=== PATIENT | female | born 1945 | race Caucasian/White ===

== ENCOUNTER 2018-06-18 21:30 | Observation (INO) | payer MEDICARE, MEDICAID ==
--- NOTE | 2018-06-18 21:42 | Emergency Department Record ---
History of Present Illness - General Chief Complaint: Hypertension Stated Complaint: HYPERTENSION Time Seen by Provider: 06/18/18 21:35 Source: Patient Mode of Arrival: Ambulatory Limitations: No limitations - History of Present Illness Initial Comments: 72 yo female presents with about two days of feeling off balance. She states she was around friends today that noticed around 7pm she was off balance and seemed to be slurring her speech for a few minutes. The speech quickly returned to normal. She states she took her blood pressure at home and it was noted to be elevated. She presented to the ED for a BP check. No headache, no vision changes. She has felt today like her arm on the left is a little weak but no actual difficulty moving, lifting, gripping. No history or cardiac disease. She is a smoker. No history of alcohol. She does have HTN. She has felt like her heart beat is skipping tonight as well. No syncope. PCP is Hipolito Flaherty MD Complaint: Dizziness, Other (Palpitations) -: Days(s) (2) Timing: Gradual onset Description: Difficulty walking, Lightheadedness, Other History of Same: No History of Trauma: No Severity: Moderate Improves With: Remaining still Worsens With: Movement, Exertion Associated Symptoms: Denies other symptoms - [place] Coma Scale Eye Response: (4) Open spontaneously Motor Response: (6) Obeys commands Verbal Response: (5) Oriented [place] Total: 15 - Symptoms of Stroke Symptoms of stroke: Dizziness, Speech Dysfunction - Related Data Home Medications Medication Instructions Recorded Confirmed Last Taken Lansoprazole 15 mg PO DAILY 06/18/18 06/18/18 06/18/18 Montelukast Sodium 10 mg PO QHS 06/18/18 06/18/18 06/18/18 Zolpidem Tartrate 10 mg PO QHS 06/18/18 06/18/18 Unknown Allergies Allergy/AdvReac Type Severity Reaction Status Date / Time No Known Drug Allergies Allergy Verified 06/18/18 21:35 Review of Systems Constitutional: Reports: Weakness. Denies: Chills, Fever Eyes: Denies: Eye discharge, Eye pain, Photophobia, Vision change ENT: Denies: Congestion, Throat pain Respiratory: Denies: Cough, Dyspnea, Hemoptysis, Stridor, Wheezes Cardiovascular: Denies: Dyspnea on exertion Endocrine: Denies: Fatigue Gastrointestinal: Denies: Abdominal pain, Diarrhea, Nausea, Vomiting Genitourinary: Denies: Dysuria Musculoskeletal: Denies: Arthralgia, Back pain, Joint swelling, Myalgia Skin: Denies: Bruising, Change in color, Rash Neurological: Reports: Vertigo, Weakness. Denies: Abnormal gait, Confusion, Headache, Numbness, Paresthesias, Seizure, Tingling, Tremors Psychiatric: Denies: Anxiety Hematological/Lymphatic: Denies: Blood Clots, Easy bleeding, Easy bruising, Swollen glands Past Medical History - SOCIAL HISTORY Smoking Status: Current every day smoker - RESPIRATORY Hx Respiratory Disorders: No - CARDIOVASCULAR Hx Cardio Disorders: Yes Hx Hypertension: Yes Comment:: takes prophylactic abx prior to dentist - NEURO Hx Neuro Disorders: No - GI Hx GI Disorders: Yes Hx Reflux: Yes - Hx Genitourinary Disorders: No - ENDOCRINE Hx Endocrine Disorders: No - MUSCULOSKELETAL Hx Musculoskeletal Disorders: Yes Hx Arthritis: Yes (osteoporosis) - PSYCH Hx Psych Problems: Yes Hx Anxiety: Yes Hx Depression: Yes Comment:: claustophobic - HEMATOLOGY/ONCOLOGY Hx Hematology/Oncology Disorders: No Physical Exam - General General Appearance: Alert, Oriented x3, Cooperative, No acute distress Limitations: No limitations - Head Head exam: Atraumatic, Normocephalic, Normal inspection Head exam detail: negative: Abrasion, Contusion - Eye Eye exam: Normal appearance, PERRL, EOMI. negative: Conjunctival injection, Scleral icterus Pupils: Normal accommodation - ENT ENT exam: Normal exam Ear exam: Normal external inspection Nasal Exam: Normal inspection Mouth exam: Normal external inspection Teeth exam: Normal inspection Throat exam: Normal inspection - Neck Neck exam: Normal inspection, Full ROM. negative: Tenderness - Respiratory Respiratory exam: Normal lung sounds bilaterally. negative: Respiratory distress - Cardiovascular Cardiovascular Exam: Regular rate, Normal rhythm, Normal heart sounds Peripheral Pulses: 2+: Radial (R), Radial (L) - GI/Abdominal GI/Abdominal exam: Soft - Rectal Rectal exam: Deferred - exam: Deferred - Extremities Extremities exam: Normal inspection, Full ROM, Normal capillary refill. negative: Pedal edema, Tenderness - Back Back exam: Reports: Normal inspection. 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 negative: Abnormal gait, Altered, Motor sensory deficit - Psychiatric Psychiatric exam: Normal affect, Normal mood. negative: Agitated, Anxious, Depressed - Skin Skin exam: Dry, Intact, Normal color, Warm Course - Reevaluation(s) Reevaluation #1: NIH at this time is 0. 06/18/18 21:41 EKG EKG #1: 2134 Rate: 69 Rhythm: sinus [place]: normal Intervals: normal ST segments: normal Prior: none 06/18/18 22:29 No acute changes on the labs. The HCT was read as no acute intracranial findings. 06/18/18 22:40 The patient remains asymptomatic He BP is improved to 164/91 I recommend OBS overnight given the symptoms earlier The patient remains asymptomatic at admission Echo, Carotid US, neuro checks ordered for admission 06/18/18 22:41 Medical Decision Making - Lab Data Result diagrams: 06/18/18 21:45 06/18/18 21:45 Disposition Disposition: Admit Clinical Impression: Dizziness, Palpitations, TIA (transient ischemic attack) Hypertension Qualifiers: Hypertension type: unspecified Qualified Code(s): I10 - Essential (primary) hypertension Disposition: Still a Patient at [facility] Decision to Admit: Admit from ER Decision to Admit Date: 06/18/18 Decision to Admit Time: 22:40 Condition: (1) Good Time of Disposition: 22:40 Quality - Quality Measures Quality Measures: N/A - Blood Pressure Screening Does Patient Have Any of the Following: Active Dx of HTN Blood Pressure Classification: Hypertensive Reading Systolic Measurement: 180 Diastolic Measurement: 71 Screening for High Blood Pressure: Patient Exclusion, Hx of HTN [[id number]]
[2018-06-18 21:52] LABS: HEMATOCRIT 44.8 % (35.0-47.0); HEMOGLOBIN 14.4 gm/dl (11.6-16.0); MEAN CELL VOLUME 91.8 fl (81-97); MEAN CORPUSCULAR HEMOGLOBIN 29.5 pg (27-33); MEAN CORPUSCULAR HGB CONC 32.1 g/dl (32-36); PLATELET COUNT 364 K/uL (130-400); RED BLOOD COUNT 4.88 M/uL (3.80-5.40); RED CELL DISTRIBUTION WIDTH 14.9 % (11.5-14.5); WHITE BLOOD COUNT W/O DIFF 7.6 K/uL (4.2-12.2)
[2018-06-18 22:00] LABS: BLOOD UREA NITROGEN 16 mg/dL (8-23); CREATININE 0.7 mg/dL (0.5-0.9); EST GLOMERULAR FILTRATION RATE > 60 mL/min
[2018-06-18 22:01] LABS: TOTAL PROTEIN 7.5 g/dL (6.6-8.7)
[2018-06-18 22:03] LABS: GLUCOSE,RANDOM 105 mg/dL (74-109)
[2018-06-18 22:04] LABS: PARTIAL THROMBOPLASTIN TIME 28.4 SECONDS (24.5-39.1); PROTHROMBIN TIME (PATIENT) 10.4 SECONDS (9.5-12.1)
[2018-06-18 22:06] LABS: ALB/GLOB RATIO 1.4 (1.1-1.8); ALBUMIN 4.4 g/dL (4.0-5.0); ALKALINE PHOSPHATASE 75 U/L (35-104); ALT/SGPT 11 U/L (<33); AST/SGOT 16 U/L (10.0-35.0)
[2018-06-18 22:47] LABS: ANISOCYTOSIS 1+; PLATELET ESTIMATE NORMAL (NORMAL)
[2018-06-18] MEDS ORDERED: ACETAMINOPHEN 325 MG TAB PO PRN (23:33)
[2018-06-18] MEDS ORDERED: ASPIRIN 81 MG CHEWABLE TABLET PO ONE (23:55)
[2018-06-18] MEDS ORDERED: MONTELUKAST SODIUM 10MG TABLET PO SCH (23:55)
[2018-06-18] MEDS ORDERED: PAROXETINE HCL 10 MG TABLET PO SCH (23:55)
[2018-06-18] MEDS ORDERED: ZOLPIDEM TARTRATE 5 MG TABLET PO SCH (23:55)
[2018-06-19 00:42] LABS: URINE APPEARANCE CLEAR; URINE BILIRUBIN NEGATIVE (NEGATIVE); URINE BLOOD NEGATIVE (NEGATIVE); URINE COLOR YELLOW; URINE GLUCOSE (UA) NEGATIVE (NEGATIVE); URINE KETONE NEGATIVE (NEGATIVE); URINE LEUKOCYTE ESTERASE TRACE (NEGATIVE); URINE NITRITE NEGATIVE (NEGATIVE); URINE PROTEIN NEGATIVE (NEGATIVE); URINE UROBILINOGEN 0.2 E.U./dL (0.20 - 1.00)
[2018-06-19 00:54] LABS: URINE RBC 0 - 2 (NONE SEEN); URINE WBC 0 - 2 (0-2/hpf)
[2018-06-19] MEDS ORDERED: PANTOPRAZOLE SODIUM 40 MG TABLET PO SCH (07:00)
[2018-06-19] MEDS ORDERED: NICOTINE14 MG/24 HOUR PATCH TD SCH (08:45)
[2018-06-19] MEDS ORDERED: PREGABALIN (LYRICA) 100MG CAPSULE PO SCH (10:00)
[2018-06-19] MEDS ORDERED: SIMVASTATIN 20 MG TABLET PO SCH (10:00)
[2018-06-19] MEDS ORDERED: ATENOLOL 50 MG TABLET PO SCH (10:00)
[2018-06-19] MEDS ORDERED: PREGABALIN 25 MG CAPSULE PO SCH (10:00)
--- NOTE | 2018-06-19 10:19 | CT SCAN REPORT ---
EXAM: NONCONTRAST CT OF THE HEAD HISTORY: DIZZINESS, SLURRED SPEECH. TECHNIQUE: Noncontrast CT of the head was obtained. Comparison: None. FINDINGS: There is no midline shift, mass effect, or abnormal intra or extraaxial fluid collection. No cerebral edema, focal mass or intracranial hemorrhage is detected. The ventricle sizes are within normal limits for patient's age. The basal cisterns castro appear effaced. No evidence of displaced calvarial fracture on bone window images. The visualized paranasal sinuses and mastoid air cells are clear. IMPRESSION: NO ACUTE INTRACRANIAL FINDINGS. JOB NUMBER: [id number] MTDD
--- NOTE | 2018-06-19 10:29 | History & Physical ---
History of Present Illness - Date of Service Date of Service for History & Physical: 06/19/18 - History of Present Illness Admitting Diagnosis: Hypertenion, dizziness, transient slurred speech. History of Present Illness: 72year old female presented to ED last night due to noting high blood pressure, feeling off balance, and an episode of slurred speech. Patient states that she was with friends last night when they noticed around 7pm that she was off balance and slurring her speech for about 2 minutes, which then spontaneously resolved. Patient states she then took her blood pressure at home, which she noted to be elevated at 169/84. Patient denied any headache, vision changes, syncope, or weakness. Patient has no cardiac history but is a current ppd smoker. Past medical history includes hypertension, hyperlipidemia, depression, and chronic arthritic pain. PCP: Hipolito Salgado ED Course: Initial BP was 220/83, repeat was 164/91 with no treatment EKG: Rate 69, normal axis, normal intervals, normal ST segments, no previous CBC, CMP, UA and troponins negative Head CT no acute process 06/19/18: Patient A&O x 4, resting comfortably in bed with daughter at bedside. Patient remains asymptomatic at this time, neuro exam WNL. BP has remained controlled with home medications. ECHO and carotid dopplers pending. Travel Screening - Travel/Exposure Within Last 30 Days Have you traveled within the last 30 days?: No - Travel/Exposure Within Last Year Have you traveled outside the [place] in the last year?: No - Additonal Travel Details Have you been exposed to anyone with a communicable illness?: No - Travel Symptoms Symptom Screening: None Review of Systems Reviewed: No additional complaints except as noted below Constitutional: Denies: Chills, Fever, Weakness Eyes: Denies: Eye discharge, Eye pain, Photophobia, Vision change ENT: Denies: Congestion, Throat pain Respiratory: Denies: Cough, Dyspnea, Hemoptysis, Stridor, Wheezes Cardiovascular: Denies: Dyspnea on exertion Endocrine: Denies: Fatigue Gastrointestinal: Denies: Abdominal pain, Diarrhea, Nausea, Vomiting Genitourinary: Denies: Dysuria Musculoskeletal: Denies: Arthralgia, Back pain, Joint swelling, Myalgia Skin: Denies: Bruising, Change in color, Rash Neurological: Reports: Vertigo, Weakness. Denies: Abnormal gait, Confusion, Headache, Numbness, Paresthesias, Seizure, Tingling, Tremors Psychiatric: Denies: Anxiety Hematological/Lymphatic: Denies: Blood Clots, Easy bleeding, Easy bruising, Swollen glands Past Medical History - SOCIAL HISTORY Smoking Status: Current every day smoker - RESPIRATORY Hx Respiratory Disorders: No - CARDIOVASCULAR Hx Cardio Disorders: Yes Hx Hypertension: Yes Comment:: takes prophylactic abx prior to dentist - NEURO Hx Neuro Disorders: No - GI Hx GI Disorders: Yes Hx Reflux: Yes - Hx Genitourinary Disorders: No - ENDOCRINE Hx Endocrine Disorders: No - MUSCULOSKELETAL Hx Musculoskeletal Disorders: Yes Hx Arthritis: Yes (osteoporosis) - PSYCH Hx Psych Problems: Yes Hx Anxiety: Yes Hx Depression: Yes Comment:: claustophobic - HEMATOLOGY/ONCOLOGY Hx Hematology/Oncology Disorders: No Family Medical History Any Significant Family History?: Yes Hx Cancer: Father *Cancer Comment: colon Hx Heart Disease: Mother H&P Meds/Allergies - Allergies Allergies: Allergies Allergy/AdvReac Type Severity Reaction Status Date / Time No Known Drug Allergies Allergy Verified 06/18/18 21:35 - Home Medications Home Medications Medication Instructions Recorded Confirmed Last Taken Lansoprazole 15 mg PO DAILY 06/18/18 06/18/18 06/18/18 Montelukast Sodium 10 mg PO QHS 06/18/18 06/18/18 06/18/18 Zolpidem Tartrate 10 mg PO QHS 06/18/18 06/18/18 Unknown Paroxetine HCl [Paxil] 30 mg PO QHS 06/19/18 06/19/18 Unknown - Active Medications Active Medications: Current Medications Acetaminophen (Tylenol 325mg) 650 mg PO Q6H PRN PRN Reason: PAIN - MILD(1-4)/FEVER Atenolol (Tenormin) 50 mg PO DAILY [facility] Last Admin: 06/19/18 09:50 Dose: 50 mg Montelukast Sodium (Singulair) 10 mg PO QHS [facility] Last Admin: 06/19/18 00:27 Dose: 10 mg Nicotine (Nicotine 14mg) 1 patch TD Q24H [facility] Last Admin: 06/19/18 08:40 Dose: 1 patch Pantoprazole Sodium (Protonix) 40 mg PO DAILYAC [facility] Last Admin: 06/19/18 06:55 Dose: 40 mg Paroxetine HCl (Paxil) 30 mg PO QHS [facility] Pregabalin (Lyrica) 200 mg PO BID [facility] Last Admin: 06/19/18 09:49 Dose: 200 mg Pregabalin (Lyrica) 25 mg PO BID [facility] Last Admin: 06/19/18 09:49 Dose: 25 mg Simvastatin (Zocor) 20 mg PO DAILY [facility] Last Admin: 06/19/18 09:49 Dose: 20 mg Zolpidem Tartrate (Ambien) 10 mg PO QHS [facility] Last Admin: 06/19/18 00:28 Dose: 10 mg Physical Exam - Vital Signs Vital Signs: Vital Signs - Last 24 Hrs Temp Pulse Pulse Resp BP Pulse Ox 06/19/18 07:42 98.2 F 64 14 166/83 93 L 06/19/18 06:02 60 18 146/76 90 L 06/18/18 23:00 98 F 61 20 180/71 92 L 06/18/18 22:59 60 20 174/83 94 L 06/18/18 22:41 62 164/91 94 L 06/18/18 22:21 63 24 208/90 94 L 06/18/18 21:38 97.3 F L 63 20 229/98 95 - General General Appearance: Alert, Oriented x3, Cooperative, No acute distress Limitations: No limitations - Head Head exam: Atraumatic, Normocephalic, Normal inspection Head exam detail: negative: Abrasion, Contusion - Eye Eye exam: Normal appearance, PERRL, EOMI. negative: Conjunctival injection, Scleral icterus Pupils: Normal accommodation - ENT ENT exam: Normal exam Ear exam: Normal external inspection Nasal Exam: Normal inspection Mouth exam: Normal external inspection Teeth exam: Normal inspection Throat exam: Normal inspection - Neck Neck exam: Normal inspection, Full ROM. negative: Tenderness - Respiratory Respiratory exam: Normal lung sounds bilaterally. negative: Respiratory distress - Cardiovascular Cardiovascular Exam: Regular rate, Normal rhythm, Normal heart sounds Peripheral Pulses: 2+: Radial (R), Radial (L), Dorsalis Pedis (R), Dorsalis Pedis (L) - GI/Abdominal GI/Abdominal exam: Soft, Normal bowel sounds - Rectal Rectal exam: Deferred - exam: Deferred - Extremities Extremities exam: Normal inspection, Full ROM, Normal capillary refill. negative: Pedal edema, Tenderness - Back Back exam: Reports: Normal inspection. 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 negative: Abnormal gait, Altered, Motor sensory deficit - Psychiatric Psychiatric exam: Normal affect, Normal mood. negative: Agitated, Anxious, Depressed - Skin Skin exam: Dry, Intact, Normal color, Warm Results - Labs Result Diagrams: 06/18/18 21:45 06/18/18 21:45 Labs Last 24 Hours: Laboratory Results - last 24 hr 06/18/18 06/18/18 06/18/18 21:45 21:45 21:45 WBC 7.6 RBC 4.88 Hgb 14.4 Hct 44.8 MCV 91.8 MCH 29.5 MCHC 32.1 RDW 14.9 H Plt Count 364 MPV 9.0 Neutrophils % 48.0 Band Neutrophils % 1.0 Eosinophils % Not Reportable Basophils % Not Reportable Lymphocytes 36.0 Monocytes 6.0 Platelet Estimate Normal Anisocytosis 1+ Eosinophil Count 9.0 H PT 10.4 INR 1.0 APTT 28.4 Sodium 141 Potassium 4.4 Chloride 100 Carbon Dioxide 29.0 Anion Gap 12.0 BUN 16 Creatinine 0.7 Estimated GFR > 60 Random Glucose 105 Calcium 9.3 Total Bilirubin 0.20 AST 16 ALT 11 Alkaline Phosphatase 75 Troponin T < 0.010 Total Protein 7.5 Albumin 4.4 Globulin 3.1 Albumin/Globulin Ratio 1.4 Urine Color Urine Appearance Urine pH Ur Specific [place] Urine Protein Urine Glucose (UA) Urine Ketones Urine Blood Urine Nitrite Urine Bilirubin Urine Urobilinogen Ur Leukocyte Esterase Urine RBC Urine WBC Ur Epithelial Cells 06/19/18 06/19/18 00:20 06:20 WBC RBC Hgb Hct MCV MCH MCHC RDW Plt Count MPV Neutrophils % Band Neutrophils % Eosinophils % Basophils % Lymphocytes Monocytes Platelet Estimate Anisocytosis Eosinophil Count PT INR APTT Sodium Potassium Chloride Carbon Dioxide Anion Gap BUN Creatinine Estimated GFR Random Glucose Calcium Total Bilirubin AST ALT Alkaline Phosphatase Troponin T < 0.010 Total Protein Albumin Globulin Albumin/Globulin Ratio Urine Color Yellow Urine Appearance Clear Urine pH 7.0 Ur Specific [place] 1.015 Urine Protein Negative Urine Glucose (UA) Negative Urine Ketones Negative Urine Blood Negative Urine Nitrite Negative Urine Bilirubin Negative Urine Urobilinogen 0.2 Ur Leukocyte Esterase Trace H Urine RBC 0 - 2 Urine WBC 0 - 2 Ur Epithelial Cells 3 - 6 VTE H&P Assessment - Risk for VTE Risk for VTE: Yes Risk Level: Low Risk Assessment Date: 06/19/18 Risk Assessment Time: 10:00 VTE Orders Placed or Will Be Placed: Yes Plan - Detailed Diagnosis and Plan (1) TIA (transient ischemic attack) Current Visit: Yes Status: Acute Base Code: G45.9 - TRANSIENT CEREBRAL ISCHEMIC ATTACK, UNSPECIFIED Comment: 06/19/18: Patient reported symptoms of slurred speech and abnormal gait at 7pm last night, which resolved within 2 minutes. Patient also reported elevated bp readings at that time. Denied headache, dizziness, syncope, vision changes, or weakness -Head CT negative for acute process -UA, CBC, CMP, troponins negative -EKG unremarkable -ECHO and carotid dopplers pending (2) Hypertension Current Visit: Yes Status: Acute Qualifiers: Hypertension type: unspecified Qualified Code(s): I10 - Essential (primary ) hypertension Base Code: I10 - ESSENTIAL (PRIMARY) HYPERTENSION Comment: 06/19/18: Patient has history of hypertension, treated with Atenolol 50mg daily at home. -Monitor VS q8h -playground monitor (3) DVT prophylaxis Current Visit: Yes Status: Acute Base Code: [id number] - Comment: 06/19/18: Patient is moderate risk due to age, hospitalization, and decreased mobility -Lovenox 30mg SQ daily (4) Full code status Current Visit: Yes Status: Acute Base Code: Z78.9 - OTHER SPECIFIED HEALTH STATUS Comment: 06/19/18: Patient is a full code status this admission
--- NOTE | 2018-06-19 16:16 | Discharge Summary ---
Providers Discharge Summary Date: 06/19/18 Date of admission: 06/18/18 23:00 Expected Date of Discharge: 06/19/18 Attending physician: BARTOLO KOEHLER Primary care physician: CEDRICK SALGADO M.D. Physical Exam - Vital Signs Vital Signs: Vital Signs - Last 24 Hrs Temp Pulse Pulse Resp BP BP Pulse Ox 06/19/18 15:00 98.4 F 59 L 18 122/63 91 L 06/19/18 14:54 98.2 F 166/83 06/19/18 07:42 98.2 F 64 14 166/83 93 L 06/19/18 06:02 60 18 146/76 90 L 06/18/18 23:00 98 F 61 20 180/71 92 L 06/18/18 22:59 60 20 174/83 94 L 06/18/18 22:41 62 164/91 94 L 06/18/18 22:21 63 24 208/90 94 L 06/18/18 21:38 97.3 F L 63 20 229/98 95 - General General Appearance: Alert, Oriented x3, Cooperative, No acute distress Limitations: No limitations - Head Head exam: Atraumatic, Normocephalic, Normal inspection Head exam detail: negative: Abrasion, Contusion - Eye Eye exam: Normal appearance, PERRL, EOMI. negative: Conjunctival injection, Scleral icterus Pupils: Normal accommodation - ENT ENT exam: Normal exam Ear exam: Normal external inspection Nasal Exam: Normal inspection Mouth exam: Normal external inspection Teeth exam: Normal inspection Throat exam: Normal inspection - Neck Neck exam: Normal inspection, Full ROM. negative: Tenderness - Respiratory Respiratory exam: Normal lung sounds bilaterally. negative: Respiratory distress - Cardiovascular Cardiovascular Exam: Regular rate, Normal rhythm, Normal heart sounds Peripheral Pulses: 2+: Radial (R), Radial (L), Dorsalis Pedis (R), Dorsalis Pedis (L) - GI/Abdominal GI/Abdominal exam: Soft, Normal bowel sounds - Rectal Rectal exam: Deferred - exam: Deferred - Extremities Extremities exam: Normal inspection, Full ROM, Normal capillary refill. negative: Pedal edema, Tenderness - Back Back exam: Reports: Normal inspection. 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 negative: Abnormal gait, Altered, Motor sensory deficit - Psychiatric Psychiatric exam: Normal affect, Normal mood. negative: Agitated, Anxious, Depressed - Skin Skin exam: Dry, Intact, Normal color, Warm Hospitalization - Hospitalization Admission Diagnosis: Hypertenion, dizziness, transient slurred speech. - Problem List/Discharge Diagnosis (1) TIA (transient ischemic attack) Current Visit: Yes Status: Acute Base Code: G45.9 - TRANSIENT CEREBRAL ISCHEMIC ATTACK, UNSPECIFIED Comment: 06/19/18: Patient reported symptoms of slurred speech and abnormal gait at 7pm last night, which resolved within 2 minutes. Patient also reported elevated bp readings at that time. Denied headache, dizziness, syncope, vision changes, or weakness -Head CT negative for acute process -UA, CBC, CMP, troponins negative -EKG unremarkable -ECHO: EF 55-60%, grade II diastolic dysfunction, mild aortic regurg, trace mitral regurg, trace tricuspid regurg, normal pulmonary pressures -Carotid dopplers: mild carotid stenosis with no hypervelocities noted -BP below goal of <140/90 during admission -No further epidsodes of slurred speech or abnormal gait (2) Hypertension Current Visit: Yes Status: Acute Discharge Diagnosis: Hypertension type: unspecified Qualified Code(s): I10 - Essential (primary ) hypertension Base Code: I10 - ESSENTIAL (PRIMARY) HYPERTENSION Comment: 06/19/18: Patient has history of hypertension, treated with Atenolol 50mg daily at home. -Monitor VS q8h -awake overnight monitor -BP below goal of <140/90 (3) DVT prophylaxis Current Visit: Yes Status: Acute Base Code: [id number] - Comment: 06/19/18: Patient is moderate risk due to age, hospitalization, and decreased mobility -Lovenox 30mg SQ daily while hospitalized, no need for further prophylaxis at home as patient to resume normal activity (4) Full code status Current Visit: Yes Status: Acute Base Code: Z78.9 - OTHER SPECIFIED HEALTH STATUS Comment: 06/19/18: Patient is a full code status this admission - Hospitalization Course Disposition: Home, Self-Care Hospital Course: 72year old female presented to ED last night due to noting high blood pressure, feeling off balance, and an episode of slurred speech. Patient states that she was with friends last night when they noticed around 7pm that she was off balance and slurring her speech for about 2 minutes, which then spontaneously resolved. Patient states she then took her blood pressure at home, which she noted to be elevated at 169/84. Patient denied any headache, vision changes, syncope, or weakness. Patient has no cardiac history but is a current ppd smoker. Past medical history includes hypertension, hyperlipidemia, depression, and chronic arthritic pain. PCP: Cedrick Salgado ED Course: Initial BP was 220/83, repeat was 164/91 with no treatment EKG: Rate 69, normal axis, normal intervals, normal ST segments, no previous CBC, CMP, UA and troponins negative Head CT no acute process 06/19/18: Patient A&O x 4, resting comfortably in bed with daughter at bedside. Patient remains asymptomatic at this time, neuro exam WNL. BP has remained controlled with home medications. ECHO and carotid dopplers pending. UPDATE: ECHO: EF 55-60%, grade II diastolic dysfunction, mild aortic regurg, trace mitral regurg, trace tricuspid regurg, normal pulmonary pressures Carotid US: mild carotid stenosis with no elevation or hypervelocities Patient has had no further episodes of slurred speech or abnormal gait, bp remains at goal <140/90. Patient to follow-up with PCP in 2 weeks. Instructed to present to ED for any additional stroke-like symptoms. Procedures: Imaging and X-Rays 06/18/18 21:35 HEAD WO CONTRAST [CT] Stat 06/19/18 09:00 ARTERIAL DOPPLER CAROTID CHEY [US] Stat Cardiology Procedures 06/18/18 21:35 Snow Remover .Continuous EKG NOW 06/18/18 23:33 Snow Remover NOW Echo W/CF & Cardiac Doppler NOW Abnormal Labs: Abnormal Lab Results 06/18/18 06/19/18 Range/Units 21:45 00:20 RDW 14.9 H (11.5-14.5) % Eosinophil Count 9.0 H (0-6) % Ur Leukocyte Esterase Trace H (NEGATIVE) Condition at Discharge: (1) Good VTE Discharge VTE Reason For No Overlap Therapy: Not Indicated Discharge Medications - Discharge Medications Home Medications: Ambulatory Orders Atenolol [Tenormin] 50 mg PO DAILY tab 05/11/16 [Last Taken 06/18/18] Fluticasone Propionate 2 spray NS DAILY spray 05/11/16 [Last Taken 06/18/18] Meloxicam 7.5 mg PO DAILY tab 05/11/16 [Last Taken 06/18/18] Pregabalin [Lyrica] 225 mg PO BID cap 05/11/16 [Last Taken 06/18/18] Simvastatin 20 mg PO DAILY tab 05/11/16 [Last Taken 06/18/18] Lansoprazole 15 mg PO DAILY 06/18/18 [Last Taken 06/18/18] Montelukast Sodium 10 mg PO QHS 06/18/18 [Last Taken 06/18/18] Zolpidem Tartrate 10 mg PO QHS 06/18/18 [Last Taken Unknown] Paroxetine HCl [Paxil] 30 mg PO QHS 06/19/18 [Last Taken Unknown] Discharge Plan - Discharge Instructions Activity at Discharge: Increase Activity as Tolerated Diet at Discharge: Regular Diet Additional Instructions: -Follow-up with PCP in 2 weeks. Your ECHO and carotid ultrasounds did not have any significant abnormal findings. -STOP SMOKING -If you experience any additional stroke-like symptoms (slurred speech, difficulty walking, confusion, facial droop) go to ER Quality Measures - Quality Measures Quality Measures: Advance Directives, Documentation of Current Medications in Medical Record, Elder Maltreatment Screen and Follow-Up Plan, Screening for High Blood Pressure and F/U Documented - Current Medications Quality Measure: Measure #130: Documentation of Current Medications Documentation of Current Medications: <Current Medications Documented/Reviewed> [G8427] - Blood Pressure Screening Quality Measure: Screening for High Blood Pressure and Follow-Up Documented Does Patient Have Any of the Following: Active Dx of HTN Blood Pressure Classification: Pre-Hypertensive BP Reading Systolic Measurement: 166 Diastolic Measurement: 83 Screening for High Blood Pressure: Patient Exclusion, Hx of HTN [G9744] - Advance Directives Quality Measure: Measure #47: Care Plan Advance Directives Established: No Advance Directives Information Provided To Patient: Yes Advance Directives on File: No Living Will: No Power of [employer] Machine: No Advance Care Planning: Not Discussed or Documented [[id number]] - Elder Abuse Suspicion Index Screening: Elder Abuse Suspicion Index Screening Rely on people for bathing, dressing, shopping, banking, etc: No Prevented from getting food, clothes, medication, etc: No Made to feel shamed or threatened by someone: No Forced to sign papers or use money against will: No Feel afraid, touched in ways not wanted or hurt physically: No Poor eye contact, withdrawn, malnourished, cuts or bruises: No Screening Result: Negative result EASI Reference Information: Dinorah NAIR, Gillian George, Edith Nava, Mao Monge.Development and validation of a tool to assist physicians identification of elder abuse: The Elder Abuse Suspicion Index (EASI ). Journal of Elder Abuse and Neglect, 2008; 20 (3): 276-300. - Elder Maltreatment Screen Quality Measures: Elder Maltreatment Screen and Follow-Up Plan Elder Maltreatment Screen: <Negative, No Follow-Up Plan Required> [G8734]
[2018-06-19] MEDS ORDERED: PAROXETINE HCL 10 MG TABLET PO SCH (22:00)
--- NOTE | 2018-06-20 07:25 | US CAROTID DOPPLER REPORT ---
EXAM: EMERGENCY BILATERAL CAROTID DOPPLER ULTRASOUND HISTORY: DIZZINESS, PALPITATIONS, SLURRED SPEECH, VERTIGO. TECHNIQUE: Fitch scale, color Doppler and duplex Doppler evaluation of the bilateral carotid arteries was performed. Comparison: No prior carotid Doppler ultrasound with which to compare. FINDINGS: 3 Vessel Right Peak Systolic/ End Diastolic Velocities Left Peak Systolic/ End Diastolic Velocities Proximal Common Carotid Artery 64.7 cm/s /10.9 cm/s 65.8 cm/s /13.1 cm/s Mid Common Carotid Artery 49.3 cm/s /14.2 cm/s 43.8 cm/s /12.0 cm/s Distal Common Carotid Artery 46.0 cm/s /10.9 cm/s 40.5 cm/s /9.8 cm/s Proximal Internal Carotid Artery 33.3 cm/s /5.7 cm/s 50.4 cm/s /15.4 cm/s Mid Internal Carotid Artery 86.5 cm/s /13.6 cm/s 62.0 cm/s /0 cm/s Distal Internal Carotid Artery 68.7 cm/s /13.6 cm/s 72.0 cm/s /20.7 cm/s Carotid Bulb 39.1 cm/s /9.9 cm/s 46.0 cm/s /13.1 cm/s Proximal External Carotid Artery 34.7 cm/s /7.6 cm/s 92.4 cm/s /7.7 cm/s d d d Right Flow Left Flow Vertebral Artery Antegrade Antegrade The peak systolic velocity ratio on the right is 1.8. The peak systolic velocity ratio on the left is 1.6. On the images themselves, some mild calcified plaque is seen along the anterior and posterior snyder of the proximal right ICA. On the left, there is also some calcified plaque seen in the region of the carotid bulb and extending into the proximal ICA as well as a small amount in the proximal ECA. IMPRESSION: SOME CALCIFIED PLAQUE IS SEEN IN THE REGION OF THE CAROTID BULBS BILATERALLY EXTENDING INTO THE ICA'S BILATERALLY WITH A SMALL AMOUNT EXTENDING INTO THE LEFT ECA WELL, HOWEVER, THERE IS NO APPRECIABLE ASSOCIATED ELEVATED PEAK SYSTOLIC OR END DIASTOLIC VELOCITIES AND THIS LIKELY REPRESENTS ONLY SOME MILD CAROTID STENOSIS. ANTEGRADE FLOW IS SEEN IN BOTH VERTEBRALS. JOB NUMBER: [id number] [facility]
[2018-06-20] MEDS ORDERED: ENOXAPARIN 40 MG/0.4 ML SYR SQ SCH (10:00)
== END 2018-06-19 16:55 | disposition home or self-care (01) ==
LOC: ER 21:30 → MEDSURG 23:00
PROVIDERS: ADMIT Internal Medicine; ATTEND Internal Medicine
DX: G45.9 Transient cerebral ischemic attack, unspecified (principal); I10 Essential (primary) hypertension; R55 Syncope and collapse; R00.2 Palpitations; M81.0 Age-related osteoporosis without current pathological fracture; M54.5 Low back pain; F17.210 Nicotine dependence, cigarettes, uncomplicated
CPT/HCPCS: 70450; 80053; 81001; 84484; 85027; 85610; 85730; 93005; 93010; 93306; 93880; 99220; 99285